=== PATIENT | male | born 1970 | race American Indian/Alaskan Native ===

== ENCOUNTER → 2022-06-15 | Outpatient (CLI) | payer OTHER ==
[~2022-06-15] MED LIST: IBUP800 PO; KETO10 PO
== END | disposition home or self-care (01) ==
LOC: LAB SHORT 16:05 → LAB 16:05
DX: E11.9 Type 2 diabetes mellitus without complications (principal)
CPT/HCPCS: 82043; 83036

== ENCOUNTER 2022-07-22 09:07 | Emergency (ER) | payer OTHER ==
[~2022-07-22] VITALS: Ht 172.7 cm; Wt 117.9 kg
[2022-07-22 09:29] LABS: BASOPHILS ABSOLUTE AUTO 0.09 K/mm3 (0.00-0.23); BASOPHILS PERCENT AUTO 1 % (0-2); EOSINOPHILS ABSOLUTE AUTO 0.18 K/mm3 (0.00-0.68); EOSINOPHILS PERCENT AUTO 1 % (0-6); Hematocrit 48.1 % (37.0-53.0); Hemoglobin 16.6 g/dL (13.5-17.5); IMMATURE GRAN ABSOLUTE AUTO 0.06 K/mm3 (0.00-0.10); IMMATURE GRAN PERCENT AUTO 0 % (0-1); LYMPHOCYTES PERCENT AUTO 19 % (21-46); MONOCYTES PERCENT AUTO 8 % (4-13); Mean Corpuscular HGB 30.1 pg (26.0-34.0); Mean Corpuscular HGB Conc 34.5 g/dL (31.5-36.5); Mean Corpuscular Volume 87 fL (80-100); Mean Platelet Volume 10.7 fL (9.1-12.4); NEUTROPHILS ABSOLUTE AUTO 10.46 K/mm3 (1.96-9.15); NEUTROPHILS PERCENT AUTO 71 % (41-73); Platelet Count 280 K/mm3 (150-400); RDW Coefficient Variation 13.3 % (11.7-14.2); RDW Standard Deviation 42.7 fL (35.1-46.3); Red Blood Cell Count 5.52 M/mm3 (4.30-5.90); White Blood Cell Count 14.79 K/mm3 (4.00-11.30)
[2022-07-22] MEDS ORDERED: ATOR10 PO (09:30)
[2022-07-22] MEDS ORDERED: METF500 PO (09:30)
[2022-07-22] MEDS ORDERED: MELO7.5 PO (09:30)
[2022-07-22 09:47] LABS: Albumin, Blood 3.9 g/dL (3.4-5.0); Albumin/Globulin Ratio 1.3 (0.8-1.8); Bilirubin, Total 0.3 mg/dL (0.1-1.0); Bun/Creatinine Ratio 19.9 (12.0-20.0); Calcium, Blood 9.1 mg/dL (8.5-10.1); Creatinine, Blood 0.81 mg/dL (0.60-1.20); Globulin, Blood 3.1 g/dL (2.2-4.0); Potassium, Blood 3.9 mmol/L (3.5-5.5)
[2022-07-22 12:03] LABS: Source, Urine Straight Cath
[2022-07-22 12:06] LABS: Appearance, Urine Clear (Clear); Bilirubin, Urine Neg (Neg); Blood, Urine Neg (Neg); Color, Urine Yellow (P-Yellow); Glucose Qualitative, Urine Neg (Neg); Ketones, Urine Neg (Neg); Leukocyte Esterase, Urine Neg (Neg); Nitrite, Urine Neg (Neg); Protein, Urine Neg (Neg); Urobilinogen, Urine NORM (Normal); pH, Urine 6.5 (5.0-8.0)
[2022-07-22 13:02] VITALS: BP 127/79
== END 2022-07-22 13:19 | disposition home or self-care (01) ==
LOC: ER 09:07
PROVIDERS: Family Medicine; Student in an Organized Health Care Education/Training Program
DX: B34.9 Viral infection, unspecified (principal); E11.9 Type 2 diabetes mellitus without complications; E66.9 Obesity, unspecified; F17.210 Nicotine dependence, cigarettes, uncomplicated; Z88.6 Allergy status to analgesic agent; Z88.5 Allergy status to narcotic agent; Z79.899 Other long term (current) drug therapy; Z79.84 Long term (current) use of oral hypoglycemic drugs
CPT/HCPCS: 36415; 71045; 80053; 81003; 84484; 85025; 93005; 93010; 99284-25; A9270

== ENCOUNTER → 2024-01-01 | Outpatient (CLI) | payer OTHER ==
[~2024-01-01] MED LIST changes: +ATOR10 PO; +MELO7.5 PO; +METF500 PO
[2024-01-01 19:03] LABS: BASOPHILS ABSOLUTE AUTO 0.13 K/mm3 (0.00-0.23); BASOPHILS PERCENT AUTO 1 % (0-2); EOSINOPHILS ABSOLUTE AUTO 0.26 K/mm3 (0.00-0.68); EOSINOPHILS PERCENT AUTO 2 % (0-6); Hematocrit 50.7 % (37.0-53.0); IMMATURE GRAN ABSOLUTE AUTO 0.03 K/mm3 (0.00-0.10); IMMATURE GRAN PERCENT AUTO 0 % (0-1); LYMPHOCYTES ABSOLUTE AUTO 3.09 K/mm3 (0.84-5.20); LYMPHOCYTES PERCENT AUTO 27 % (21-46); MONOCYTES ABSOLUTE AUTO 1.01 K/mm3 (0.16-1.47); MONOCYTES PERCENT AUTO 9 % (4-13); Mean Corpuscular HGB Conc 33.5 g/dL (31.5-36.5); Mean Corpuscular Volume 89 fL (80-100); Mean Platelet Volume 12.3 fL (9.1-12.4); NEUTROPHILS ABSOLUTE AUTO 7.02 K/mm3 (1.96-9.15); NEUTROPHILS PERCENT AUTO 61 % (41-73); Platelet Count 255 K/mm3 (150-400); RDW Coefficient Variation 13.5 % (11.7-14.2); RDW Standard Deviation 44.5 fL (35.1-46.3); Red Blood Cell Count 5.67 M/mm3 (4.30-5.90); White Blood Cell Count 11.54 K/mm3 (4.00-11.30)
[2024-01-02 00:35] LABS: Alanine Aminotransfer (ALT/SGP 42 U/L (12-78); Albumin, Blood 3.9 g/dL (3.4-5.0); Albumin/Globulin Ratio 1.3 (0.8-1.8); Alk Phos 79 U/L (50-136); Anion Gap 11 mmol/L (3-11); Aspartate Aminotrans (AST/SGOT 22 U/L (12-37); Bilirubin, Total 0.4 mg/dL (0.1-1.0); Blood Urea Nitrogen 10 mg/dL (8-24); Bun/Creatinine Ratio 11.8 (12.0-20.0); CHOL/HDL RATIO 3.6; CO2, Blood 27 mmol/L (21-32); Calcium, Blood 9.2 mg/dL (8.5-10.1); Chloride, Blood 106 mmol/L (98-108); Cholesterol 121 mg/dL (50-200); Creatinine, Blood 0.85 mg/dL (0.60-1.20); Glomerular Filtration Rate 103 (60-); Glucose, Blood 82 mg/dL (70-99); HDL Cholesterol 34 mg/dL (>39); LDL/HDL RATIO 0.5; Low Density Lipoprotein Chol 17 mg/dL (0-110); Prostate Specific Antigen 0.374 ng/mL (0.000-4.000); Sodium, Blood 140 mmol/L (136-145); Total Protein, Blood 6.9 g/dL (6.4-8.2); Triglycerides 351 mg/dL (30-160); Very Low Density Lipoprot Chol 70 mg/dL (6-32)
[2024-01-04 08:52] LABS: HIV 1,2 COMBO ANTIGEN/ANTIBODY Negative (Negative)
== END | disposition home or self-care (01) ==
LOC: LAB 17:54 → LAB SHORT 17:54
PROVIDERS: Family Medicine
DX: Z12.5 Encounter for screening for malignant neoplasm of prostate (principal); Z11.4 Encounter for screening for human immunodeficiency virus [HIV]; E11.9 Type 2 diabetes mellitus without complications; E78.2 Mixed hyperlipidemia
CPT/HCPCS: 80053; 80061; 85025; 87389; G0103

== ENCOUNTER 2024-06-04 12:57 | Observation (INO) | payer OTHER ==
[~2024-06-04] VITALS: Ht 180.3 cm; Wt 110.2 kg
[~2024-06-04 12:57] MED LIST changes: -MELO7.5 PO; -METF500 PO; +METF500C PO; +MOBIC15 MG PO
[2024-06-04 13:21] LABS: BASOPHILS ABSOLUTE AUTO 0.07 K/mm3 (0.00-0.23); BASOPHILS PERCENT AUTO 1 % (0-2); EOSINOPHILS ABSOLUTE AUTO 0.31 K/mm3 (0.00-0.68); EOSINOPHILS PERCENT AUTO 3 % (0-6); Hematocrit 47.9 % (37.0-53.0); Hemoglobin 16.8 g/dL (13.5-17.5); IMMATURE GRAN ABSOLUTE AUTO 0.04 K/mm3 (0.00-0.10); IMMATURE GRAN PERCENT AUTO 0 % (0-1); LYMPHOCYTES ABSOLUTE AUTO 3.33 K/mm3 (0.84-5.20); LYMPHOCYTES PERCENT AUTO 26 % (21-46); MONOCYTES ABSOLUTE AUTO 0.79 K/mm3 (0.16-1.47); MONOCYTES PERCENT AUTO 6 % (4-13); Mean Corpuscular HGB 31.1 pg (26.0-34.0); Mean Corpuscular HGB Conc 35.1 g/dL (31.5-36.5); Mean Corpuscular Volume 89 fL (80-100); NEUTROPHILS PERCENT AUTO 64 % (41-73); Platelet Count 234 K/mm3 (150-400); RDW Coefficient Variation 12.8 % (11.7-14.2); RDW Standard Deviation 41.5 fL (35.1-46.3); White Blood Cell Count 12.64 K/mm3 (4.00-11.30)
[2024-06-04 13:46] LABS: Albumin, Blood 3.7 g/dL (3.4-5.0); Albumin/Globulin Ratio 1.4 (0.8-1.8); Bilirubin, Total 0.4 mg/dL (0.1-1.0); Bun/Creatinine Ratio 15.8 (12.0-20.0); Calcium, Blood 8.7 mg/dL (8.5-10.1); Creatinine, Blood 0.83 mg/dL (0.60-1.20); Globulin, Blood 2.7 g/dL (2.2-4.0); Potassium, Blood 3.8 mmol/L (3.5-5.5); Total Protein, Blood 6.4 g/dL (6.4-8.2)
[2024-06-04] MEDS ORDERED: FLU VACC TS2024-25(6MOS UP)/PF 45 MCG/0.5 ML SYRINGE IM ONE (16:25)
[2024-06-04] MEDS ORDERED: Ondansetron HCl 2 MG / ML 2ML Vial IV PRN (16:30)
[2024-06-04] MEDS ORDERED: Insulin Regular 100 UNIT/ML 10ML Vial SC SCH (16:30)
[2024-06-04] MEDS ORDERED: Albuterol 2.5 MG/3 ML VIAL INH PRN (16:30)
[2024-06-04] MEDS ORDERED: Ipratropium/Albuterol SulF 2.5-0.5MG/3 ML Amp INH SCH (16:30)
[2024-06-04] MEDS ORDERED: Ibuprofen 600 MG Tab PO PRN (16:35)
[2024-06-04] MEDS ORDERED: PredniSONE 20 MG Tab PO SCH (17:00)
--- NOTE | 2024-06-04 17:25 | NUR ---
RN TO RN REPORT RECEIVED FROM CORI IN ER.
[2024-06-04 17:42] VITALS: BP 125/80
[2024-06-04] MEDS ORDERED: Fluconazole 100 MG Tab PO SCH (18:00)
[2024-06-04 20:55] VITALS: BP 138/96
[2024-06-04 20:57] VITALS: BP 128/70
[2024-06-04 20:58] VITALS: BP 129/81
[2024-06-04] MEDS ORDERED: Atorvastatin 10 MG Tab PO SCH (21:00)
--- NOTE | 2024-06-05 00:03 | NUR ---
UPDATED PHYSICIAN PHYSICIAN NOTIFED THAT TELE CALLED AND REPORTED A 6 BEAT RUN OF VTACH. PT DENIES SOB, CHEST PAIN AT THIS TIME. PLAN IS FOR PT TO DC TOMORROW WITH ZIO PATCH. NO NEW ORDERS RECEIVED.
--- NOTE | 2024-06-05 03:04 | NUR ---
SHIFT SUMMARY @HS REPORT RECEIVED FROM THE DAY SHIFT RN. PT SETTLING IN THE HOSPITAL ROOM. AFTER 1999 PT'S SISTER AND FAMILY WERE UNABLE TO PASS THROUGH ED TO VISIT IN THE MEDICAL FLOOR. PT BECAME UPSET AND DEMANDED TO LEAVE THE HOSPITAL. PT REQUESTED TO SPEAK WITH THE CHARGE NURSE. CHARGE NURSE SPOKE WITH THE PT. FAMILY ABLE TO COME AFTER VISITING HRS AND SEE THE PT. PT AGREED TO STAY. PT IS A/O X4, PLEASANT AND COOPERATIVE WITH CARE. TELE: SR @69. ONE-TIME 6 BEAT V-TACH PER CANDLE CUTTER. VSS. PT AMBULATING INDEPENDENTLY WITHIN THE HOSPITAL ROOM. PT AGREES TO LET THE STAFF KNOW IF FEELING DIZZY. ORTHOSTATIC BP'S TAKEN @HS. PT DENIES CHEST PAIN/PRESSURE AND SOB. SOME ANXIETY NOTED AND PER PT REPORT. LEFT HALLUX DIABETIC ULCER COVERED WITH BANDAID, C/D/I. PT REPORTS 4/10 LEFT FOOT PAIN AND TAKES IBUPROFEN @HOME FOR THE PAIN. RA>95%. NO ACUTE EVENTS DURING THIS SHIFT. PT WISHES TO D/C TODAY WITH ZIO PATCH. PT REPORTS STRESSORS IN FAMILY LIFE SUCH MOTHER RECENTLY DIAGNOSED WITH CANCER. PT TAKES CARE OF HIS MOTHER. BED AT THE LOWEST POSITION, CALL LIGHT W/I REACH.
[2024-06-05 03:11] VITALS: BP 133/83
[2024-06-05 05:54] LABS: Bun/Creatinine Ratio 20.6 (12.0-20.0); Calcium, Blood 8.7 mg/dL (8.5-10.1); Creatinine, Blood 0.78 mg/dL (0.60-1.20); Potassium, Blood 3.7 mmol/L (3.5-5.5); Thyroid Stimulating Hormone 0.9 uIU/mL (0.360-4.800)
[2024-06-05 07:57] VITALS: BP 132/90
[2024-06-05] MEDS ORDERED: Meloxicam 7.5 MG Tab PO SCH (09:00)
[2024-06-05] MEDS ORDERED: Enoxaparin 40 MG/0.4 ML SYR SC SCH (09:00)
[2024-06-05] MEDS ORDERED: MOTRIN IB200 MG PO (11:30)
[2024-06-05] MEDS ORDERED: Diflucan100 MG PO (11:32)
[2024-06-05] MEDS ORDERED: TERB250 PO (11:35)
[2024-06-05] MEDS ORDERED: MUPIROCIN2210 TOP (11:36)
[2024-06-05] MEDS ORDERED: TRAM50 PO (11:36)
[2024-06-05] MEDS ORDERED: PRED20 PO (11:57)
[2024-06-05] MEDS ORDERED: ALBU90OI INH (11:58)
[2024-06-05] MEDS ORDERED: FLUTICASONE-SA1 EAC2 INH (11:59)
--- NOTE | 2024-06-05 12:25 | NUR ---
DISCHARGE SUMMARY PATIENT HAD 1 DIZZINESS EPISODE IN THE NIGHT, NONE TODAY. HE DENIES ANY SHORTNESS OF BREATH, LUNGS CLEAR. NO ACUTE EVENTS THIS AM. ZIOPATCH PLACED TODAY AND PATIENT MEDICATION AND EDUCATION PACKET PRINTED AND REVIEWED WITH PATIENT. SIGNATURE OBTAINED. PATIENT DECLINED USE OF TRASPORT CHAIR BUT IS ESCORTED OUT BY AMBULATION WITH LILY SAMS AT 1223. IV REMOVED BY MELISSA SAMS. PATIENT LEAVING VIA PRIVATE VEHICLE.
== END 2024-06-05 12:33 | disposition home or self-care (01) ==
LOC: ER 12:57 → MEDS 12:58 → ENPENDDIS 06-05 11:12 → MEDS 06-05 12:33
PROVIDERS: Physician Assistant; ADMIT Internal Medicine
DX: R55 Syncope and collapse (principal); J44.1 Chronic obstructive pulmonary disease with (acute) exacerbation; E11.9 Type 2 diabetes mellitus without complications; E78.5 Hyperlipidemia, unspecified; E66.9 Obesity, unspecified; F43.10 Post-traumatic stress disorder, unspecified; M17.0 Bilateral primary osteoarthritis of knee; Z88.5 Allergy status to narcotic agent; Z88.8 Allergy status to other drugs, medicaments and biological substances; Z79.899 Other long term (current) drug therapy; Z79.84 Long term (current) use of oral hypoglycemic drugs; Z87.891 Personal history of nicotine dependence
CPT/HCPCS: 36415; 70450; 80048; 80053; 82947; 84443; 84484; 85025; 85379; 93005; 93010; 93246; 93306; 94640; 94664; 94760; 99285-25; A9270; G0378; J1650; J1815; J7512

== ENCOUNTER → 2024-06-14 | Outpatient (CLI) | payer OTHER ==
[~2024-06-14] MED LIST changes: +ALBU90OI INH; +Diflucan100 MG PO; +FLUTICASONE-SA1 EAC2 INH; +MOTRIN IB200 MG PO; +MUPIROCIN2210 TOP; +PRED20 PO; +TERB250 PO; +TRAM50 PO
[2024-06-14 15:25] LABS: BASOPHILS ABSOLUTE AUTO 0.07 K/mm3 (0.00-0.23); BASOPHILS PERCENT AUTO 1 % (0-2); EOSINOPHILS ABSOLUTE AUTO 0.22 K/mm3 (0.00-0.68); EOSINOPHILS PERCENT AUTO 2 % (0-6); Hematocrit 48.8 % (37.0-53.0); Hemoglobin 16.3 g/dL (13.5-17.5); IMMATURE GRAN ABSOLUTE AUTO 0.03 K/mm3 (0.00-0.10); IMMATURE GRAN PERCENT AUTO 0 % (0-1); LYMPHOCYTES ABSOLUTE AUTO 2.14 K/mm3 (0.84-5.20); LYMPHOCYTES PERCENT AUTO 22 % (21-46); MONOCYTES ABSOLUTE AUTO 0.59 K/mm3 (0.16-1.47); MONOCYTES PERCENT AUTO 6 % (4-13); Mean Corpuscular HGB 30.1 pg (26.0-34.0); Mean Corpuscular HGB Conc 33.4 g/dL (31.5-36.5); Mean Corpuscular Volume 90 fL (80-100); Mean Platelet Volume 11.7 fL (9.1-12.4); NEUTROPHILS ABSOLUTE AUTO 6.67 K/mm3 (1.96-9.15); NEUTROPHILS PERCENT AUTO 69 % (41-73); Platelet Count 232 K/mm3 (150-400); RDW Coefficient Variation 13.2 % (11.7-14.2); RDW Standard Deviation 43.5 fL (35.1-46.3); Red Blood Cell Count 5.42 M/mm3 (4.30-5.90); White Blood Cell Count 9.72 K/mm3 (4.00-11.30)
[2024-06-14 16:33] LABS: Albumin, Blood 3.6 g/dL (3.4-5.0); Albumin/Globulin Ratio 1.3 (0.8-1.8); Bilirubin, Total 0.5 mg/dL (0.1-1.0); Bun/Creatinine Ratio 14.5 (12.0-20.0); Calcium, Blood 9.2 mg/dL (8.5-10.1); Creatinine, Blood 0.83 mg/dL (0.60-1.20); Globulin, Blood 2.7 g/dL (2.2-4.0); Thyroid Stimulating Hormone 1.26 uIU/mL (0.360-4.800); Total Protein, Blood 6.3 g/dL (6.4-8.2)
== END ==
LOC: LAB SHORT 12:34 → LAB 12:34
PROVIDERS: Family Medicine
DX: Z51.81 Encounter for therapeutic drug level monitoring (principal); Z79.899 Other long term (current) drug therapy
CPT/HCPCS: 80053; 83036; 84443; 85025

== ENCOUNTER → 2024-12-25 | Outpatient (CLI) | payer OTHER ==
[2024-12-25 15:03] LABS: CHOL/HDL RATIO 2.6; Cholesterol 90 mg/dL (50-200); HDL Cholesterol 35 mg/dL (>39); LDL/HDL RATIO 1.1; Low Density Lipoprotein Chol 37 mg/dL (0-110); Triglycerides 90 mg/dL (30-160); Very Low Density Lipoprot Chol 18 mg/dL (6-32)
[2024-12-25 15:10] LABS: Creatinine, Urine Random 65.90 mg/dL (27.00-270.00)
[2024-12-25 15:13] LABS: Microalb/Creat Ratio UR, Rand Unable to Calculate mg/g (0.000-30.000); Microalbumin, Random Urine <5.000 mg/L (0.000-20.000)
== END ==
LOC: LAB 10:58 → LAB SHORT 10:58
PROVIDERS: Family Medicine
DX: E11.9 Type 2 diabetes mellitus without complications (principal); E78.2 Mixed hyperlipidemia
CPT/HCPCS: 80061; 82043; 82570; 83036

== ENCOUNTER → 2025-02-11 | Outpatient (CLI) | payer OTHER ==
[2025-02-14 00:41] LABS: COTININE, URN, SCREEN Negative
== END | disposition home or self-care (01) ==
LOC: LAB SHORT 23:00 → LAB 23:00
PROVIDERS: Orthopaedic Surgery
DX: Z09 Encounter for follow-up examination after completed treatment for conditions other than malignant neoplasm (principal); Z87.891 Personal history of nicotine dependence